=== PATIENT | male | born 1970 | race Caucasian/White ===

== ENCOUNTER 2024-03-28 10:22 | Outpatient (REF) | payer BC, SELFPAY | END 2024-03-28 10:23 | disposition home or self-care (01) | LOC: HO.HOSX 10:22 | PROVIDERS: Visit Provider Neurological Surgery | DX: M43.17 Spondylolisthesis, lumbosacral region (principal) | CPT/HCPCS: 72110 ==

== ENCOUNTER 2024-03-28 10:22 | Outpatient (AMB) | payer BC, SELFPAY ==
--- NOTE | 2024-03-28 10:29 | HO.SPINEOV ---
Intake Visit Reasons: LBP Intake Note: Mr. Barnett is here today c/o low back pain that radiates to both legs. 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 HPI: This 54-year-old self-referred patient comes in complaining of severe low back pain. The pain started years ago in his located across the lumbar spine. The last few years the pain has aggravated tremendously to a point that he only sleeps 3 hours a night due to the pain. He has to put a pillow in between his legs. Changing positions from sitting to standing is painful. He is slowly come from a flexed position to a more straight position to alleviate the pain in his back. In the last 2 years he also developed radiating pain down into his groin and down his leg into his big toe. The left side is much worse than the right side. He also has left foot numbness and a constant numbness of his left big toe. The pain down his legs comes with walking and standing for 5 minutes. He has always behind when he walks with his . Sitting down alleviates the pain down his legs. 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 The following conservative treatment options were tried without success antiinflammatories, tylenol, physical therapy, chiropractic therapy, multiple cortisone shots PMH: AFib fibrillation in past, which was corrected with cardioversion. Medications: None Allergies: NKDA Social history: . Nonsmoker Physical Exam: Pleasant male. He is in agony. Coming out of the chair produces severe pain in the lower back. He stands in a flexed position. He is able to reproduce the radiating pain down his left leg after short period of standing in the office. There is hypoesthesia of his left big toe. Motor exam is intact. No pathological reflexes. Radiological Studies: MRI done at [facility] on 03/05/2024 shows a steep angle of the L5-S1 segment with a L5-S1 spondylolisthesis and severe bilateral L5 foraminal stenosis. Standing x-rays today obtain show a grade 2 L5-S1 spondylolisthesis with a bilateral lysis. Impression/Plan: This patient is suffering from intractable low back pain and bilateral L5 radiculopathy, left more than right caused by an L5-S1 spondylolisthesis with associated severe L5 neuroforaminal stenosis. The L5-S1 segment has a very steep angle and therefore an anterior lumbar interbody fusion or oblique lumbar interbody fusion will be very challenging surgically. The same is true for an transforaminal lumbar interbody fusion posteriorly. The best option in my opinion is to offer him an oblique lateral lumbar interbody fusion L5-S1, this minimally invasive technique, allows me to indirectly decompress the nerve structure and fuse the L5-S1 segment. I described the procedure possible complications with the patient and his . He wants to proceed. He will call my office for a surgical date. Thank you for allowing me to participate in your patients care. total time spent was 62 minutes in counseling ,coordination of plan, personal review of imaging, surgical decision making and subsequent plan Mike Velasquez MD, PhD Sp[facility] Fellowship Trained Neurosurgeon Director, [facility] (2) Lumbosacral stenosis without neurogenic claudication: Code(s): M48.07 - Spinal stenosis, lumbosacral region Category: Medical Plan j Orders: Orders XR lumbar spine 4V min Today M43.17 - Spondylolisthesis, lumbosacral region Coding Level of Care Code New Pt Level 5 (76792) Diagnoses Acquired spondylolisthesis of lumbosacral region M43.17 Lumbosacral stenosis without neurogenic claudication M48.07
== END 2024-03-28 12:48 | disposition home or self-care (01) ==
PROVIDERS: Visit Provider Neurological Surgery
DX: M43.17 Spondylolisthesis, lumbosacral region (principal); M48.07 Spinal stenosis, lumbosacral region
CPT/HCPCS: 99205

== ENCOUNTER 2025-03-18 08:19 | Outpatient (AMB) | payer BC, SELFPAY ==
--- NOTE | 2025-03-18 08:27 | A.OFFVIS_ITS ---
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 He was originally referred to my office by Dr. Velasquez to perform interlaminar epidural steroid injection L5-S1, he was diagnose with spondylolisthesis L5-S1 and spinal stenosis. Unfortunately the injection did not go through because patient is currently on warfarin. Of warfarin was ordered for the patient after he developed atrial fibrillation and had a procedure of cardiac innervation ablation. After the procedure he developed a blood clot in the lower extremity and was placed on warfarin. Walking standing aggravate his pain. He walks leaning forward. Flexing forward alleviates his pain well flexing backwards makes his pain more severe. He can not sleep normally can not do activities of daily living he is able to take care of himself but he can not function normally. He is working full-time see above. Weather changes and motions aggravate his pain. Heat applications make his pain better. His pain is constant and he reports pain 8 to 10/10 on regular basis. In terms of tissue damage he reports his pain as pulsing and pounding jumping and shooting stabbing and lancinating sharp and lacerating tugging and wrenching hot burning and searing tingling and stinging dull, hurting, heavy, tiring and exhausting spreading and piercing tight and tearing sensation. He had x-ray perform on his lower back which demonstrated spondylolisthesis and he had an MRI which is not available to me but according to the Dr. Velasquez note the MRI shows spondylolisthesis and foraminal stenosis L5-S1 more on the left and less on the right. He had physical therapy many years ago and although physical therapy aggravated his pain he continues home exercise program trying to help his pain. He tried 10s unit which did not help his pain. He never tried chiropractic manipulations. Many years ago pain management in [facility] perform some injections which are unknown to the patient. His past medical history significant for history of AFib and history of DVT now on warfarin, he denies any surgical history, he admits drinking coffee but denies smoking cigarettes denies drinking alcohol and denies recreational drugs. Review of Systems Const All systems reviewed & are unremarkable except as noted in HPI and below ENT Reports Normal hearing present Neuro Reports Normal hearing present, Denies Abnormal speech present, Denies confusion and Denies Sensory deficit (Neuro) Psych Denies confusion Physical Exam Vital Signs: Last Vital Signs Pulse 92 03/18/25 08:28 Resp 16 03/18/25 08:28 BP 157/97 H 03/18/25 08:28 Pulse Ox 95 03/18/25 08:28 Oxygen Delivery Method Room Air 03/18/25 08:28 BMI result Body Mass Index 37.2 Const General: no acute distress; No confusion Nutritional Appearance: obese morbidly obese Orientation/consciousness: patient oriented x3 and No confusion Eyes General: appearance normal, both eyes and all related structures Pupils: Equal, round and reactive pupils present EOM: EOMs intact bilaterally Neck Neck: Yes full ROM Chest Chest palpation & inspection: normal inspection of the chest Resp Effort & Inspection: normal respiratory effort, able to speak in complete sentences, normal respiratory pattern, no audible wheezes and no cough Cardio Jugular venous distension: no JVD GI Inspection: Yes normal to inspection Back/Spine/Pelvis Other: Able to stand on bilateral tiptoes in bilateral heels, stand on bilateral heels with significant difficulty. Reports numbness in the hip lower leg and foot with the attempt to stand on bilateral heels. Flexing forward aggravates his pain flexing backwards aggravate his pain but flexing forward aggravate his pain less than flexing backwards. SLR is positive on the left, Lasegue test is positive on the left, Valsalva maneuver aggravate his pain. Neuro General: patient oriented x3, gait normal and No confusion Cranial nerves: Yes CN's II-XII intact bilaterally, Yes Equal, round and reactive pupils present, Yes Normal hearing present and Yes Ability to bilaterally elevate shoulders present Speech: No Abnormal speech present Gait exam (Neuro): Normal gait present Motor exam (neuro): 5/5 motor strength present throughout Sensory Exam: No Sensory deficit (Neuro) Extrem General: No pedal edema Psych Speech and movement: Normal speech and movement present Affect: normal affect Attitude: cooperative Thought process: Normal thought process present Thought content: Normal thought content present Insight: Good insight present (Psych) Judgement: Good judgement present (Psych) Results Reviewed Results Reviewed: I personally evaluated images of this patient, it looks like that the patient has grade 2 to grade 3 L5 over S1 anterolisthesis. Assessment & Plan Assessment & Plan (1) Acquired spondylolisthesis of lumbosacral region: Code(s): M43.17 - Spondylolisthesis, lumbosacral region Category: Medical (2) Spinal stenosis, lumbar region with neurogenic claudication: Code(s): M48.062 - Spinal stenosis, lumbar region with neurogenic claudication Category: Medical (3) Chronic pain syndrome: Code(s): G89.4 - Chronic pain syndrome Category: Medical Plan We will request clinic from a provider by the name Anastasia Cordero TO REQUEST CLEARANCE TO STOP ELIQUIS. If it is advisable to do with the without Lovenox bridge we will schedule this patient for interlaminar more to the left epidural steroid injection.. I explained to the patient that this procedure will be only a Band-Aid on his problem. I explained to him that the permanent fix will be the surgery our neurosurgeon Dr. Velasquez offered to him. Patient expressed understanding. Patient Instructions: I here by testify that I spent 45 minutes in conversation with this patient as well as evaluating patient's images planning his records and organizing this note. Coding Level of Care Code New Pt Level 4 (13812) Diagnoses Acquired spondylolisthesis of lumbosacral region M43.17 Spinal stenosis, lumbar region with neurogenic claudication M48.062 Chronic pain syndrome G89.4
[2025-03-18 08:28] VITALS: BP 157/97; PULSE 92; RESP 16; O2SAT 95; BMI 37.2
== END 2025-03-18 09:01 | disposition home or self-care (01) ==
LOC: HO.PMC 08:20
PROVIDERS: Visit Provider Anesthesiology
DX: M43.17 Spondylolisthesis, lumbosacral region (principal); M48.062 Spinal stenosis, lumbar region with neurogenic claudication; G89.4 Chronic pain syndrome
CPT/HCPCS: 99204